=== PATIENT | female | born 1995 | race Caucasian/White ===

== ENCOUNTER 2017-06-13 19:06 | Emergency (ER) | payer OTHER ==
[~2017-06-13] VITALS: Ht 160 cm; Wt 81.9 kg
[2017-06-13 19:08] VITALS: BP 144/90
[2017-06-13] MEDS ORDERED: FLUORESCEIN OPHTHALMIC 1 MG STRIP ONE (19:27)
[2017-06-13] MEDS ORDERED: PROPARACAINE OPHTH 0.5%, 15ML ONE (19:28)
[2017-06-13] MEDS ORDERED: PROPARACAINE OPHTH 0.5%, 15ML LEFTEYE ONE (19:30)
[2017-06-13] MEDS ORDERED: FLUORESCEIN OPHTHALMIC 1 MG STRIP LEFTEYE ONE (19:30)
== END 2017-06-13 20:31 | disposition home or self-care (01) ==
LOC: ED 20:25
DX: S00.12XA Contusion of left eyelid and periocular area, initial encounter (principal); Z88.2 Allergy status to sulfonamides; W50.1XXA Accidental kick by another person, initial encounter; Y93.89 Activity, other specified; Y92.89 Other specified places as the place of occurrence of the external cause; Y99.9 Unspecified external cause status
CPT/HCPCS: 70200; 99284

== ENCOUNTER → 2017-10-10 | Outpatient (CLI) | payer OTHER | LOC: RAD 14:24 | PROVIDERS: ATTEND Internal Medicine Hematology & Oncology | DX: R76.12 Nonspecific reaction to cell mediated immunity measurement of gamma interferon antigen response without active tuberculosis (principal) ==

== ENCOUNTER → 2017-10-11 | Outpatient (CLI) | payer OTHER | LOC: RAD 07:41 | PROVIDERS: ATTEND Internal Medicine Hematology & Oncology | DX: Z02.9 Encounter for administrative examinations, unspecified (principal) ==